=== PATIENT | female | born 1930 | race Caucasian/White ===

== ENCOUNTER 2016-06-11 17:06 | Inpatient (IN) | payer OTHER ==
--- NOTE | 2016-06-11 17:29 | EDPHY ---
H & P Stated Complaint: weakness/dizzy/bradycardia/here for pacemaker Time Seen by Provider: 06/11/16 17:28 HPI/ROS: CHIEF COMPLAINT: Bradycardia, shortness of breath, weakness. HISTORY OF PRESENT ILLNESS: The patient is an 85-year-old female presenting from her primary care provider with one week of shortness of breath, weakness, and bradycardia. She had an appointment with her primary care provider today at 1400 who noticed her heart rate was 38. She had an EKG taken and she was referred here on the advice of Dr. Whatley, cardiology, for Pacemaker placement. She has not fainted or had peripheral edema over the past week. She is currently fatigued and short of breath with a headache. Her shortness of breath is worsened with she lies flat. She has had a recent cold with rhinorrhea. No fever, chills, chest pain, palpitations, vomiting, diarrhea, urinary complaints , headache, lightheadedness. She has recently had more frequent ocular migraines with shimmering vision in her right visual field. REVIEW OF SYSTEMS: Aside from elements discussed in the HPI, a comprehensive 10-point review of systems was reviewed and is negative. PAST MEDICAL HISTORY: Spinal stenosis, arthritis, scoliosis, shingles, Raynaud 's Syndrome. SOCIAL HISTORY: Here with daughter. VITAL SIGNS: Reviewed by me GENERAL: Well-developed, well-nourished, resting comfortably in no respiratory distress. HEENT: Atraumatic. Eyes: No icterus, no injection. Mouth: moist mucous membranes. No erythema or lesions. Neck: supple with no adenopathy. LUNGS: Clear to auscultation bilaterally, no wheezes, rhonchi or rales. CARDIAC: Bradycardic with irregular rhythm. Systolic murmur. No gallops. ABDOMEN: Soft, nontender, nondistended, bowel sounds normal. BACK: No CVA tenderness. EXTREMITIES: No trauma. No edema. Range of motion is normal throughout. NEURO: Alert and oriented, grossly nonfocal. SKIN: Warm and dry, no rash. PSYCHIATRIC: Normal mentation, no agitation. Portions of this note were transcribed by a medical liaison. I personally performed a history, physical exam, medical decision making, and confirmed accuracy of information the transcribed note. Source: Patient Exam Limitations: No limitations - Personal History Current Tetanus/Diphtheria Vaccine: Yes - Medical/Surgical History Hx Asthma: No Hx Chronic Respiratory Disease: No Hx Diabetes: No Hx Cardiac Disease: No Hx Renal Disease: No Hx Cirrhosis: No Hx Alcoholism: No Hx HIV/AIDS: No Hx Splenectomy or Spleen Trauma: No Other PMH: denies - Social History Smoking Status: Never smoked Constitutional: Initial Vital Signs Temperature (C) 36.4 C 06/11/16 17:15 Heart Rate 62 06/11/16 17:15 Respiratory Rate 16 06/11/16 17:15 Blood Pressure 148/70 H 06/11/16 17:15 O2 Sat (%) 93 06/11/16 17:15 O2 Delivery Mode Room Air O2 (L/minute) 2 Allergies/Adverse Reactions: codeine Allergy (Verified 06/11/16 17:11) meperidine HCl [From Demerol] Allergy (Verified 06/11/16 17:11) Penicillins Allergy (Verified 06/11/16 17:10) Home Medications: Medication Instructions Recorded Cetirizine [ZyrTEC 10 mg (*)] 10 mg PO DAILY 06/11/16 Dextran 70/Hypromellose 1 each OP DAILY PRN 06/11/16 [Artificial Tears] Gabapentin [Neurontin 300 MG (*)] 300 mg PO HS 06/11/16 Herbals/Supplements -Info Only 1 ea NS DAILY 06/11/16 Omeprazole 40 mg PO DAILY 06/11/16 Ranitidine HCl 300 mg PO HS 06/11/16 Simvastatin 20 mg PO HS 06/11/16 Tramadol HCl/Acetaminophen 1 each PO TID@0830,14,21 06/11/16 [Tramadol-Acetaminophn 37.5-325] cycloSPORINE 0.05% [Restasis Opht 1 drop EACHEYE BID 06/11/16 Drops(*)] Lisinopril [Zestril 10 mg (*)] 10 mg PO ONCE #30 tab 06/13/16 Montelukast Sodium [Singulair 10 10 mg PO DAILY@1800 #0 tab 06/13/16 mg (*)] Medical Decision Making - Diagnostics EKG Interpretation: 12-LEAD EKG: Please see the full report in [facility]. My interpretation: sinus bradycardia. Further rhythm strip demonstrates complete heart block. Imaging: X-ray of the chest was obtained. I viewed the images myself on the PACS system. My interpretation of the images is: markedly elevated left hemidiaphragm. The radiologist interpretation is pending at this time. I discussed the x-ray findings with the patient. ED Course/Re-evaluation: An IV was established and labs ordered. Chest x-ray and EKG ordered. Dr. Whatley, cardiology, will see the patient later tonight and requests she be admitted to the hospitalist service. Although her EKG showed sinus bradycardia, on the monitor patient has complete heart block. Troponin negative, electrolytes normal. Will admit on pacer pads, bp stable, will need pacemaker. Patient and family aware. Differential Diagnosis: Diff dx of patients complaints of sob and fatigue include cardiac causes, anemia , infection, electrolyte abnormalties, arrythmias, heart failure. Consult/Admit Bed Type: Dr Cruz, Stepdown - Data Points Laboratory Results: Laboratory Results 06/11/16 17:40 06/11/16 17:40 Medications Given: Discontinued Medications Atorvastatin Calcium (Lipitor) 10 mg PO HS [facility] Stop: 12/08/16 22:29 Last Admin: 06/12/16 20:49 Dose: Not Given Bacitracin (Bacitracin 1000 Ml Irrigation) 50,000 units IRR ONCALL ONE Stop: 06/12/16 06:01 Last Admin: 06/12/16 10:50 Dose: Not Given Cetirizine HCl (Zyrtec) 10 mg PO DAILY [facility] Stop: 12/09/16 08:59 Last Admin: 06/12/16 20:50 Dose: Not Given Cetirizine HCl (Zyrtec) 10 mg PO HS [facility] Stop: 12/09/16 08:59 Last Admin: 06/12/16 21:05 Dose: 10 mg Cyclosporine (Restasis) 1 drop EACHEYE BID MARY Stop: 12/08/16 20:59 Last Admin: 06/12/16 20:50 Dose: Not Given Cyclosporine (Restasis) 1 drop EACHEYE BID MARY Stop: 12/09/16 08:59 Last Admin: 06/13/16 09:45 Dose: 1 drop Diazepam (Valium) 5 mg PO ONCALL ONE Stop: 06/12/16 06:01 Last Admin: 06/12/16 10:50 Dose: Not Given Diphenhydramine HCl (Benadryl) 25 mg PO ONCALL ONE Stop: 06/12/16 06:01 Last Admin: 06/12/16 10:50 Dose: Not Given Famotidine (Pepcid) 20 mg PO HS [facility] Stop: 12/08/16 22:29 Last Admin: 06/12/16 20:50 Dose: Not Given Gabapentin (Neurontin) 300 mg PO HS [facility] Stop: 12/08/16 20:59 Last Admin: 06/12/16 20:51 Dose: Not Given Gabapentin (Neurontin) 300 mg PO HS [facility] Stop: 12/08/16 23:29 Last Admin: 06/12/16 21:03 Dose: 300 mg Hydralazine HCl (Apresoline) 5 mg IVP ONCE ONE Stop: 06/11/16 23:31 Last Admin: 06/11/16 23:17 Dose: 5 mg Sodium Chloride (Ns) 1,000 mls @ 0 mls/hr IV ONCALL ONE PRN Reason: As Directed Stop: 06/12/16 06:01 Last Admin: 06/12/16 10:50 Dose: Not Given Vancomycin HCl 750 mg/ (Dextrose) 150 mls @ 150 mls/hr IV ONCE ONE Stop: 06/12/16 07:29 Last Admin: 06/12/16 10:50 Dose: Not Given Vancomycin HCl 750 mg/ (Dextrose) 165 mls @ 165 mls/hr IV Q24H MARY PRN Reason: Protocol Stop: 06/13/16 07:59 Last Admin: 06/13/16 06:43 Dose: 165 mls Lisinopril (Zestril) 10 mg PO ONCE ONE Stop: 06/13/16 11:31 Last Admin: 06/13/16 11:15 Dose: 10 mg Miscellaneous Medication (Tramadol Hcl/Acetaminophen [Tramadol-Acetaminophn 37.5 -325]) 1 each PO TID@0830,14,21 [facility] Stop: 12/08/16 20:59 Last Admin: 06/12/16 20:51 Dose: Not Given Miscellaneous Medication (Non-Formulary) 0 ea PO HS [facility] Stop: 12/08/16 23:29 Last Admin: 06/12/16 21:04 Dose: 20 mg Miscellaneous Medication (Non-Formulary) 0 ea PO AD@0800,2000 [facility] Stop: 12/08/16 23:29 Last Admin: 06/12/16 20:51 Dose: Not Given Miscellaneous Medication (Non-Formulary) 0 ea PO DAILY [facility] Stop: 12/09/16 08:59 Last Admin: 06/13/16 09:43 Dose: 40 mg Miscellaneous Medication (Tramadol Hcl/Acetaminophen [Tramadol-Acetaminophn 37.5 -325]) 1 each PO TID@0830,14,21 [facility] Stop: 12/09/16 08:29 Last Admin: 06/12/16 20:51 Dose: Not Given Miscellaneous Medication (Tramadol Hcl/Acetaminophen [Tramadol-Acetaminophn 37.5 -325]) 1.5 tab PO DAILY@12 [facility] Stop: 12/09/16 14:29 Last Admin: 06/12/16 13:45 Dose: 1.5 tab Miscellaneous Medication (Tramadol Hcl/Acetaminophen [Tramadol-Acetaminophn 37.5 -325]) 2 each PO HS [facility] Stop: 12/09/16 20:59 Last Admin: 06/12/16 21:19 Dose: 2 tab Miscellaneous Medication (Tramadol Hcl/Acetaminophen [Tramadol-Acetaminophn 37.5 -325]) 1.5 tab PO DAILY@,14 [facility] Stop: 12/09/16 14:29 Last Admin: 06/13/16 11:15 Dose: 1.5 tab Miscellaneous Medication (Non-Formulary) 0 ea PO HS [facility] Stop: 12/08/16 23:29 Last Admin: 06/12/16 21:01 Dose: 300 mg Montelukast Sodium (Singulair) 10 mg PO DAILY@1800 [facility] Stop: 12/09/16 17:59 Last Admin: 06/12/16 21:49 Dose: Not Given Departure - Departure Disposition: [facility] Acute Clinical Impression: Bradycardia, Shortness of breath, Complete atrioventricular block Condition: Fair Report Scribed for: Екатерина Smith Report Scribed by: Corey Austin Date of Report: 06/11/16 Time of Report: 17:38
--- NOTE | 2016-06-11 17:44 | CPEKG ---
Heart Rate: 38 RR Interval: 1579 P-R Interval: 352 QRSD Interval: 130 QT Interval: 528 QTC Interval: 420 P [place]: 0 QRS [place]: -65 T Wave [place]: 49 EKG Severity - ABNORMAL ECG - EKG Impression: SINUS BRADYCARDIA EKG Impression: FIRST DEGREE AV BLOCK EKG Impression: NONSPECIFIC IVCD WITH LAD Electronically Signed By: Solis Land 12-Jun-2016 17:43:35
[2016-06-11 18:02] LABS: % IMMATURE GRANULYOCYTES 0.3 % (0.0-1.1); ABSOLUTE IMMATURE GRANULOCYTES 0.02 10^3/uL (0.00-0.10); ADD DIFF? NO; ADD MORPH? NO; ADD SCAN? NO; ATYPICAL LYMPHOCYTE FLAG 10 (0-99); FRAGMENT RBC FLAG 0 (0-99); HEMATOCRIT 40.6 % (38.0-47.0); HEMOGLOBIN 13.9 g/dL (12.6-16.3); LEFT SHIFT FLG 0 (0-99); LIPEMIA HEMOLYSIS FLAG 90 (0-99); MEAN CELL HEMOGLOBIN 32.1 pg (27.9-34.1); MEAN CELL HEMOGLOBIN CONCENTR. 34.2 g/dL (32.4-36.7); MEAN CELL VOLUME 93.8 fL (81.5-99.8); MEAN PLATELET VOLUME 9.7 fL (8.7-11.7); PLATELET CLUMPS FLAG 0 (0-99); PLATELET COUNT 190 10^3/uL (150-400); RED BLOOD CELL COUNT 4.33 10^6/uL (4.18-5.33); RED CELL DISTRIBUTION WIDTH 12.9 % (11.5-15.2)
[2016-06-11 18:07] LABS: ALANINE AMINOTRANSFERASE 48 IU/L (9-52); ALBUMIN 3.8 g/dL (3.5-5.0); ALKALINE PHOSPHATASE 50 IU/L (38-126); ANION GAP 12 mEq/L (8-16); ASPARTATE AMINOTRANSFERASE 47 IU/L (14-46); BILIRUBIN,TOTAL 0.5 mg/dL (0.1-1.4); BILIRUBIN-CONJUGATED 0.1 mg/dL (0.0-0.5); BILIRUBIN-UNCONJUGATED 0.4 mg/dL (0.0-1.1); CALCIUM 9.4 mg/dL (8.5-10.4); CARBON DIOXIDE 27 mEq/l (22-31); CHLORIDE 98 mEq/L (97-110); CREATININE 0.7 mg/dL (0.6-1.0); GLOMERULAR FILTRATION RATE > 60; GLUCOSE 104 mg/dL (70-100); MAGNESIUM 1.9 mg/dL (1.6-2.3); POTASSIUM 4.2 mEq/L (3.5-5.2); SODIUM 137 mEq/L (134-144); TOTAL PROTEIN 6.7 g/dL (6.3-8.2)
[2016-06-11 18:17] LABS: TROPONIN I 0.016 ng/mL (0-0.034)
--- NOTE | 2016-06-11 18:26 | DX ---
PA and Lateral Chest June 11, 2016 Indication: Chest pain Findings: The left hemidiaphragm is markedly asymmetrically elevated results in left basilar compress aj atelectasis. The right lung is clear except for minimal linear atelectasis the base. No pulmonary edema, pneumothorax, or effusion. Demineralization and marked curvature of the thoracic spine. An ol d/subacute right lateral 9th rib fracture has healing callus. No discernible acute fracture. Impression: Marked asymmetric elevation left hemidiaphragm and bibasilar atelectasis.
[2016-06-11] MEDS ORDERED: ONDANSETRON 4 MG/2 ML VIAL IVP PRN (20:17)
[2016-06-11] MEDS ORDERED: ONDANSETRON DISINTEGRATING 4 MG TAB PO PRN (20:17)
[2016-06-11] MEDS ORDERED: ACETAMINOPHEN 325 MG TAB PO PRN (20:17)
--- NOTE | 2016-06-11 20:42 | GHP ---
[f rep st] HISTORY AND PHYSICAL DATE OF ADMISSION: 06/11/2016 CHIEF COMPLAINT: Weakness, fatigue. HISTORY OF PRESENT ILLNESS: This is an 85-year-old female with no previous cardiac history. She has had 1 week of shortness of breath with exertion as well as just generalized fatigue. She has had no chest pain. She was at [facility] and found to have a bradycardia and [facility]. She does have a headache. She also had a recent cough, cold. She has a histor y of headaches and ocular migraines, which she has had more frequently. REVIEW OF SYSTEMS: A 10-point review of systems was obtained and was negative. PAST MEDICAL HISTORY: 1. Spinal stenosis and scoliosis. 2. Raynaud. 3. Previous history of shingles. 4. Migraines. MEDICATIONS: Reviewed. SOCIAL HISTORY: No smoking or alcohol. FAMILY HISTORY: Father had coronary disease. PHYSICAL EXAM: VITAL SIGNS: Afebrile, blood pressure is 153/63, heart rate is in the 30s, oxygen sa turation 95% on room air. GENERAL: Patient is a thin, in no apparent distress. HEENT: Nonicteric sclerae. Extraocular movements intact. Moist mucous membranes. NECK: Supple. No thyromegaly. JUSTYNA NGS: Good effort. Clear to auscultation bilaterally. CARDIOVASCULAR: Bradycardic. No murmurs, ru bs, or gallops. ABDOMEN: Positive bowel sounds. Soft, nontender, nondistended. No hepatosplenomeg darshana. EXTREMITIES: No clubbing, cyanosis, or edema. SKIN: Without rash. Warm, dry, and intact. N EUROLOGIC: Alert and oriented x3. Moving all 4 extremities equally. PSYCH: Normal affect. LABS: CBC is normal. Chemistry is also normal. Negative troponin. EKG personally reviewed and int erpreted, shows a sinus bradycardia and first-degree AV block. PLAN: Bradycardia, probably more consistent with sick sinus syndrome. Cardiology will see the patie nt and place a pacemaker in the morning. /[id number]/MODL
[2016-06-11] MEDS ORDERED: TRAMADOL HCL PO SCH (21:00)
[2016-06-11] MEDS ORDERED: ACETAMINOPHEN PO SCH (21:00)
[2016-06-11] MEDS ORDERED: GABAPENTIN 300 MG CAP PO SCH (21:00)
[2016-06-11] MEDS ORDERED: CYCLOSPORINE 0.05% 1 EACH BOX EACHEYE SCH (21:00)
[2016-06-11] MEDS ORDERED: TEARS/DEXTRAN 70/HYPROMELLOSE 15 ML OPHT.BTL EACHEYE PRN (22:13)
[2016-06-11] MEDS ORDERED: FAMOTIDINE 20 MG TAB PO SCH (22:30)
[2016-06-11] MEDS ORDERED: ATORVASTATIN CALCIUM 10 MG TAB PO SCH (22:30)
[2016-06-11] MEDS ORDERED: hydrALAZINE 20 MG/ML VIAL IVP ONE (23:30)
[2016-06-12] MEDS: ACETAMINOPHEN PO SCH ×2 (00:13→20:51)
[2016-06-12] MEDS: TRAMADOL HCL PO SCH ×2 (00:13→20:51)
[2016-06-12] MEDS: RANITIDINE 300MG PO SCH ×2 (00:17→20:51)
[2016-06-12] MEDS: GABAPENTIN 300 MG CAP PO SCH ×2 (00:17→21:03)
[2016-06-12] MEDS: CYCLOSPORINE 0.05% 1 EACH BOX EACHEYE SCH ×3 (00:20→21:04)
[2016-06-12] MEDS: SIMVASTATIN 40MG TABLET PO SCH ×2 (00:22→21:04)
[2016-06-12 04:59] LABS: % IMMATURE GRANULYOCYTES 0.1 % (0.0-1.1); ABSOLUTE IMMATURE GRANULOCYTES 0.01 10^3/uL (0.00-0.10); ADD DIFF? NO; ADD MORPH? NO; ADD SCAN? NO; ATYPICAL LYMPHOCYTE FLAG 40 (0-99); FRAGMENT RBC FLAG 0 (0-99); HEMATOCRIT 36.4 % (38.0-47.0); HEMOGLOBIN 12.6 g/dL (12.6-16.3); LEFT SHIFT FLG 0 (0-99); LIPEMIA HEMOLYSIS FLAG 90 (0-99); MEAN CELL HEMOGLOBIN 32.8 pg (27.9-34.1); MEAN CELL HEMOGLOBIN CONCENTR. 34.6 g/dL (32.4-36.7); MEAN CELL VOLUME 94.8 fL (81.5-99.8); MEAN PLATELET VOLUME 9.9 fL (8.7-11.7); PLATELET CLUMPS FLAG 0 (0-99); PLATELET COUNT 177 10^3/uL (150-400); RED BLOOD CELL COUNT 3.84 10^6/uL (4.18-5.33); RED CELL DISTRIBUTION WIDTH 12.9 % (11.5-15.2)
[2016-06-12 05:09] LABS: ALANINE AMINOTRANSFERASE 46 IU/L (9-52); ALBUMIN 3.1 g/dL (3.5-5.0); ALKALINE PHOSPHATASE 46 IU/L (38-126); ANION GAP 8 mEq/L (8-16); ASPARTATE AMINOTRANSFERASE 33 IU/L (14-46); BILIRUBIN,TOTAL 0.4 mg/dL (0.1-1.4); CALCIUM 9.3 mg/dL (8.5-10.4); CARBON DIOXIDE 28 mEq/l (22-31); CHLORIDE 104 mEq/L (97-110); CREATININE 0.7 mg/dL (0.6-1.0); GLOMERULAR FILTRATION RATE > 60; GLUCOSE 99 mg/dL (70-100); POTASSIUM 4.4 mEq/L (3.5-5.2); SODIUM 140 mEq/L (134-144); TOTAL PROTEIN 5.6 g/dL (6.3-8.2)
[2016-06-12 05:11] LABS: INR 1.13 (0.83-1.16); PROTIME(PATIENT) 14.4 SEC (12.0-15.0)
[2016-06-12 05:12] LABS: APTT 33.2 SEC (23.0-38.0)
[2016-06-12] MEDS ORDERED: NS 1,000 ML IV ONE (06:00)
[2016-06-12] MEDS ORDERED: diphenhydrAMINE 25 MG CAP PO ONE (06:00)
[2016-06-12] MEDS ORDERED: DIAZEPAM 5 MG TAB PO ONE (06:00)
[2016-06-12] MEDS ORDERED: BACITRACIN IRRIGATION/NS 50,000 UNITS/1,000 ML BTL IRR ONE (06:00)
[2016-06-12] MEDS ORDERED: VANCOMYCIN 750 MG in D5W 150 ML IV ONE (06:30)
[2016-06-12] MEDS ORDERED: VANCOMYCIN HCL/NORMAL SALINE 250 ML IV ONE (07:00)
[2016-06-12] MEDS ORDERED: LIDOCAINE 1% 30 ML SDV ONE (07:03)
[2016-06-12] MEDS ORDERED: fentaNYL 100 MCG/2 ML INJ ONE (07:04)
[2016-06-12] MEDS ORDERED: BUPIVACAINE 0.5% 30 ML SDV ONE (07:04)
[2016-06-12] MEDS ORDERED: MIDAZOLAM 2 MG/2 ML VIAL ONE (07:04)
[2016-06-12] MEDS ORDERED: IOPAMIDOL (ISOVUE-300) 200 ML BTL IV ONE (08:05)
[2016-06-12] MEDS ORDERED: CETIRIZINE 10 MG TAB PO SCH ×3 (09:00→21:00)
[2016-06-12] MEDS ORDERED: PANTOPRAZOLE SODIUM 40 MG TAB PO SCH (09:00)
--- NOTE | 2016-06-12 09:15 | CPEKG ---
Heart Rate: 67 RR Interval: 896 P-R Interval: 204 QRSD Interval: 140 QT Interval: 488 QTC Interval: 516 P [place]: -57 QRS [place]: -74 T Wave [place]: 91 EKG Severity - ABNORMAL ECG - EKG Impression: ATRIAL-VENTRICULAR DUAL-PACED RHYTHM Electronically Signed By: Solis Land 12-Jun-2016 17:43:28
[2016-06-12] MEDS: OMEPRAZOLE 40MG CAPS PO SCH (12:42)
--- NOTE | 2016-06-12 13:46 | EPPROC ---
Electrophysiology Procedure Note: PROCEDURE PERFORMED: * Implantation of an A/V Pacemaker * Subclavian vein angiography * Fluoroscopy INDICATION: This is a 85 yr old who presented to ER with dizziness and SOA and was in complete heart block. hence it was decided to implant dual chamber pacemaker. PROCEDURE NOTE: Patient presented to the cardiac catherization laboratory in a fasting, post absorptive state. Cardiac biology laboratory assistant nurse administered moderate sedation. The left infraclavicular area was prepped and draped in the usual sterile fashion. Lidocaine plus bupivacaine was used for local anesthesia. Left subclavian venography was performed by injection of iodinated contrast into the left antecubital vein. This was done to assure patency of the vein and also to assess for any anatomical aberrations. Using a combination of blunt and sharp dissection and electrocautery, the dissection was carried down to the prepectoral fascia. All bleeding was controlled with electrocautery. Fluoroscopy was utilized during the entire procedure for venous access and placement of the leads. Using the usual technique, left celphalic vein was accessed and a glidewire was placed. Through this initially a 9F and later a 7F sheath was passed. Placement of the guidewires into the venous system was confirmed by low- pressure blood return and also by visualizing the guidewires advancing into the inferior vena cava. A purse string suture was applied around the guidewires. An active fixation ventricular lead was advanced into the right ventricular apex and screwed in place. An active fixation atrial lead was advanced into the right atrial appendage and screwed in place. The peel away sheaths were removed. Pacing thresholds, sensing parameters and lead impedances were measured. There was no diaphragmatic stimulation at maximum output. The leads were sutured to the prepectoral fascia with 3 nonabsorbable sutures each. The pocket was created and it was flushed using antibiotic solution. It was inspected for any bleeding. The leads were attached to the pacemaker securely. The pacemaker was inserted into the pocket and secured in place with a nonabsorbable suture. Fluoroscopy was performed in ALMAZAN and POLISH planes to verify right-sided placement of the leads. Also fluoroscopy of the pacemaker pocket was performed. The pacemaker pocket was closed in 3 layers with absorbable vicryl sutures. Steristrips were placed. Appropriate dressing was applied. The patient left the cardiac catheterization laboratory in stable condition. Serial Numbers: * Device: ROLIronik ELuna 8 DR Wood SN [id number] * Atrial Lead: Biotronik SOlia S 45 SN [id number] * Ventricular Lead: Biotronik Solia S53 SN [id number] Stimulation Thresholds & Impedance Measurements: * Atrial Lead 3.3mV, 0.8@0.4ms, 468Ohms * Ventricular Lead 5.1mV, 0.8@0.5ms, 669Ohms Wilbert Pacing Parameters * Pacing mode: DDD CLS * Lower rate: 60 * Upper tracking rate: 120 * Upper sensor rate: 120 Patient Problems: Problems Problem Status Diagnosed Bradycardia Acute
[2016-06-12] MEDS ORDERED: ACETAMINOPHEN PO SCH ×2 (14:30→21:00)
[2016-06-12] MEDS ORDERED: TRAMADOL PO SCH ×2 (14:30→21:00)
--- NOTE | 2016-06-12 15:19 | HOSPPROG ---
Hospitalist Progress Note Assessment/Plan: 85 y/o female presenting with weakness and fatigue # Sick Sinus Syndrome POD 0 PPM placement plan for dc 06/13 if doing well and cleared by cards Subjective: feeling well post procedure. no sob. no acute complaints Objective: Vital Signs Temp Pulse Resp BP Pulse Ox 36.3 C 63 12 188/99 H 100 06/12/16 10:39 06/12/16 10:39 06/12/16 10:39 06/12/16 10:39 06/12/16 10:39 Laboratory Results 06/12/16 03:39 06/12/16 03:39 06/11/16 06/12/16 06/13/16 05:59 05:59 05:59 Intake Total 650 Output Total 1100 Balance -450 PT 14.4 SEC (12.0-15.0) 06/12/16 03:39 INR 1.13 (0.83-1.16) 06/12/16 03:39 - Physical Exam Constitutional: no apparent distress, appears nourished, not in pain Ears, Nose, Mouth, Throat: moist mucous membranes, hearing normal, ears appear normal, no oral mucosal ulcers Cardiovascular: regular rate and rhythym, no murmur, rub, or gallop Respiratory: no respiratory distress, no rales or rhonchi, clear to auscultation Gastrointestinal: normoactive bowel sounds, soft, non-tender abdomen, no palpable masses ICD10 Worksheet Patient Problems: Problems Problem Status Diagnosed Bradycardia Acute
[2016-06-12] MEDS ORDERED: MONTELUKAST SODIUM 10 MG TAB PO SCH (18:00)
[2016-06-12] MEDS ORDERED: RANITIDINE 300MG PO SCH (21:00)
[2016-06-13 04:52] LABS: % IMMATURE GRANULYOCYTES 0.3 % (0.0-1.1); ABSOLUTE IMMATURE GRANULOCYTES 0.02 10^3/uL (0.00-0.10); ADD DIFF? NO; ADD MORPH? NO; ADD SCAN? NO; ATYPICAL LYMPHOCYTE FLAG 30 (0-99); FRAGMENT RBC FLAG 0 (0-99); HEMATOCRIT 34.1 % (38.0-47.0); HEMOGLOBIN 11.8 g/dL (12.6-16.3); LEFT SHIFT FLG 0 (0-99); LIPEMIA HEMOLYSIS FLAG 90 (0-99); MEAN CELL HEMOGLOBIN 32.1 pg (27.9-34.1); MEAN CELL HEMOGLOBIN CONCENTR. 34.6 g/dL (32.4-36.7); MEAN CELL VOLUME 92.7 fL (81.5-99.8); MEAN PLATELET VOLUME 9.7 fL (8.7-11.7); PLATELET CLUMPS FLAG 0 (0-99); PLATELET COUNT 153 10^3/uL (150-400); RED BLOOD CELL COUNT 3.68 10^6/uL (4.18-5.33); RED CELL DISTRIBUTION WIDTH 12.8 % (11.5-15.2)
[2016-06-13 04:54] LABS: ANION GAP 9 mEq/L (8-16); CALCIUM 8.8 mg/dL (8.5-10.4); CARBON DIOXIDE 26 mEq/l (22-31); CHLORIDE 102 mEq/L (97-110); CREATININE 0.7 mg/dL (0.6-1.0); GLOMERULAR FILTRATION RATE > 60; GLUCOSE 108 mg/dL (70-100); POTASSIUM 4.2 mEq/L (3.5-5.2); SODIUM 137 mEq/L (134-144)
[2016-06-13] MEDS ORDERED: VANCOMYCIN 750 MG in D5W 150 ML IV SCH (07:00)
[2016-06-13 08:42] VITALS: BP 161/93; PULSE 101; RESP 18; TEMP 98.5; O2SAT 95
[2016-06-13] MEDS ORDERED: TRAMADOL PO SCH (09:00)
[2016-06-13] MEDS ORDERED: ACETAMINOPHEN PO SCH (09:00)
[2016-06-13] MEDS: OMEPRAZOLE 40MG CAPS PO SCH (09:43)
[2016-06-13] MEDS: CYCLOSPORINE 0.05% 1 EACH BOX EACHEYE SCH (09:45)
--- NOTE | 2016-06-13 10:32 | ECHO ---
[id number] + + [address] : : [place] [address] : : [phone] + Adult Echocardiographic Report + ----+ :Name: DEISI ERAZO FStudy Date: 06/13/2016 07:56 AM : : Hospital Admission Number: [id number] Location: 203: :: 1930 Gender: Female Height: 58 in : :Age: 85 yrs Race: WH Weight: 97 lb : :Reason For Study: Bradycardia/New pacer : : BSA: 1.3 meters2 : + ----+ Doppler Measurements & Calculations MV E max jose raul: MV V2 max: MV P1/2t max jose raul: Ao mean P.6 cm/sec 180.3 cm/sec 147.7 cm/sec 11.2 mmHg MV A max jose raul: MV max PG: MV P1/2t: 101.2 msec Ao V2 mean: 207.1 cm/sec 13.0 mmHg MVA(P1/2t): 2.2 cm2 157.8 cm/sec MV E/A: 0.64 MV V2 mean: MV dec slope: Ao V2 VTI: 37.2 cm MV dec time: 99.5 cm/sec 0.26 sec MV mean P.3 cm/sec2 5.0 mmHg MV V2 VTI: 34.3 cm Left Ventricle The left ventricle is hyperdynamic. Right Ventricle There is a pacemaker lead in the right ventricle. Atria The left atrium is moderately dilated. Mitral Valve Severely calcified mitral leaflets. There is mild mitral regurgitation. Tricuspid Valve Normal tricuspid valve. Pulmonic Valve The pulmonic valve is not well visualized. Great Vessels The aortic root is not well visualized. Pericardium/Pleural trivial pericardial effusion. Conclusion A complete two-dimensional transthoracic echocardiogram was performed (2D, M-mode, Doppler and color flow Doppler). The study was technically difficult. Limited views for visualization. The left ventricle is hyperdynamic. There is a pacemaker lead in the right ventricle. The left atrium is moderately dilated. Severely calcified mitral leaflets. There is mild mitral regurgitation. Other details are difficult to decipher considering limited study post- pacemaker implant Final Reading Physician: Aravind Iniguez signed on 06/13/2016 10:30 AM Ordering Physician: Sonya Cruz Performed By: Xuan Raymond RDCS
--- NOTE | 2016-06-13 10:41 | DX ---
AP Upright and Lateral Chest June 13, 2016 Clinical Indications: Follow up cardiac pacer placement; comparison June 11, 2016. Findings: There has been placement of a bipolar cardiac pacer from a left subclavian approach. No pne umothorax is identified. Again noted is prominent elevation of the left hemidiaphragm. Compressive atelectatic changes are see n involving the left lower lung. There is minimal right basilar atelectasis. The upper lungs are rashid r. Secondary to opacification of the lower chest on the left, heart size is difficult to evaluate. Ao rtic tortuosity is seen. Prominent scoliotic curvature of the spine is noted. Impression: 1. Negative for pneumothorax following transvenous cardiac pacemaker placement. 2. See above report for additional findings.
--- NOTE | 2016-06-13 10:43 | SOAPPROG ---
SOAP Progress Note Assessment/Plan: Assessment/Plan: This is a 85 yr old with past history of HTN came in with [facility]. Pacemaker was implanted. Pacemaker: Numbers are optimal. CXR shows good lead position. Instructions given. Pt will be seen in our clinic for wound care and device check in one week. Arrangements are being made HTN; Add Lisinopril. Explained to the pt who is agreeable to the plan. Home Health: product development worker on board to eval for the same. 06/13/16 10:41 Subjective: Pt is doing well. Feeling better. Objective: Vital Signs Temp Pulse Resp BP Pulse Ox 36.9 C 101 H 18 161/93 H 95 06/13/16 08:00 06/13/16 08:00 06/13/16 08:00 06/13/16 08:00 06/13/16 08:00 Laboratory Results 06/13/16 03:27 06/13/16 03:27 06/12/16 06/13/16 06/14/16 05:59 05:59 05:59 Intake Total 650 950 Output Total 1100 1000 Balance -450 -50 PT 14.4 SEC (12.0-15.0) 06/12/16 03:39 INR 1.13 (0.83-1.16) 06/12/16 03:39 Physical Exam - Physical Exam General Appearance: alert, no apparent distress EENT: PERRL/EOMI, pharynx normal Neck: supple, normal inspection Respiratory: lungs clear Cardiac/Chest: regular rate, rhythm, No edema, No gallop Abdomen: normal bowel sounds, non-tender, soft, No organomegaly Skin: normal color, warm/dry ICD10 Worksheet Patient Problems: Problems Problem Status Diagnosed Bradycardia Acute
--- NOTE | 2016-06-13 10:58 | PDIAF ---
- Diagnosis Diagnosis: sick sinus syndrome Code Status: Full Code - Medication Management Discharge Medications: Medications to Continue on Transfer Cetirizine [ZyrTEC 10 mg (*)] 10 mg PO DAILY 06/11/16 [Last Taken 06/10/16] Dextran 70/Hypromellose [Artificial Tears] 1 each OP DAILY PRN 06/11/16 [Last Taken Unknown] Gabapentin [Neurontin 300 MG (*)] 300 mg PO HS 06/11/16 [Last Taken 06/10/16] Herbals/Supplements -Info Only 1 ea NS DAILY 06/11/16 [Last Taken 06/11/16] Omeprazole 40 mg PO DAILY 06/11/16 [Last Taken 06/11/16] Ranitidine HCl 300 mg PO HS 06/11/16 [Last Taken 06/10/16] Simvastatin 20 mg PO HS 06/11/16 [Last Taken 06/10/16] Tramadol HCl/Acetaminophen [Tramadol-Acetaminophn 37.5-325] 1 each PO TID@0830, 14,21 06/11/16 [Last Taken Unknown] cycloSPORINE 0.05% [Restasis Opht Drops(*)] 1 drop EACHEYE BID 06/11/16 [Last Taken 06/11/16] Montelukast Sodium [Singulair 10 mg (*)] 10 mg PO DAILY@1800 #0 tab 06/13/16 [ Last Taken Unknown] Discharge Medications: Refer to the Discharge Home Medication list for PRN reason. - Orders Services needed: Home Care, Registered Nurse, Occupational Therapy Home Care Face to Face: I certify that this patient was under my care and that I had the required [id number] encounter meeting the encounter requirements on the discharge day. My findings support the fact that the patient is homebound as defined in CMS Chapter 7 Medicare Benefits Manual 30.1.1, The condition of the patient is such that there exists a normal inability to leave home and consequently, leaving home would require a considerable and taxing effort. Diet Recommendation: no restrictions on diet Diet Texture: Regular Texture Diet - Follow Up Care Current Providers and Referrals: [place],. [Primary Care Provider] - As per Instructions
[2016-06-13] MEDS ORDERED: LISINOPRIL 10 MG TAB PO ONE (11:30)
--- NOTE | 2016-06-13 14:37 | GDS ---
[f rep st] DISCHARGE SUMMARY DISCHARGE DIAGNOSES: 1. Sick sinus syndrome, status post dual-chamber pacemaker placement. 2. Hypertension. CONSULTANTS: Dr. Alex Whatley, [facility]. HOSPITAL COURSE AND STAY BY PROBLEM: Sick sinus syndrome: The patient was admitted to the hospital, where she underwent a dual-chamber pacemaker placement on 06/12/2016. Postprocedure, the patient bergman s not had any complications and on day of discharge feels well and would like to go home and has been cleared by Cardiology. PHYSICAL EXAMINATION: VITAL SIGNS: On day of discharge, blood pressure 161/93, pulse of 101, respir atory rate 18, O2 sat 95% on room air. PROCEDURES DONE THIS HOSPITAL STAY: Dual-chamber pacemaker placement, done 06/12/2016. DISCHARGE MEDICATIONS: Please refer to discharge medication reconciliation in [facility] for full deta ils. Below is a preliminary list. New medications on hospital discharge: Lisinopril 10 mg p.o. daily. DISCHARGE INSTRUCTIONS: The patient will be discharged from the hospital, where she should follow up with her primary care provider for routine blood pressure monitoring. She is also to follow up at [facility] as directed. /[id number]/MODL
--- NOTE | 2016-06-14 09:48 | CPEKG ---
Heart Rate: 84 RR Interval: 714 P-R Interval: 220 QRSD Interval: 128 QT Interval: 432 QTC Interval: 511 P Covel: 45 QRS Covel: -72 T Wave Covel: 96 EKG Severity - ABNORMAL ECG - EKG Impression: ATRIAL-SENSED VENTRICULAR-PACED COMPLEXES EKG Impression: prolonged Qtc interval Electronically Signed By: Solis Land 15-Jun-2016 07:41:24
== END 2016-06-13 12:59 | disposition home health service (06) | DRG 244 ==
LOC: OBSVTOIN 20:20 → F2W 22:09
PROVIDERS: ADMIT Internal Medicine; ATTEND Internal Medicine
PROC: 0JH606Z Insertion of Pacemaker, Dual Chamber into Chest Subcutaneous Tissue and Fascia, Open Approach (ICD-10-PCS; principal; 2016-06-12)
PROC: 02HK3JZ Insertion of Pacemaker Lead into Right Ventricle, Percutaneous Approach (ICD-10-PCS; principal; 2016-06-12)
PROC: 02H63JZ Insertion of Pacemaker Lead into Right Atrium, Percutaneous Approach (ICD-10-PCS; principal; 2016-06-12)
DX: I49.5 Sick sinus syndrome (principal); I10 Essential (primary) hypertension; Z88.0 Allergy status to penicillin
CPT/HCPCS: 82947-QW; 97166-GO; C1785; C1898; G8987-GO-CJ; G8988-GO-CI; J0360; J2250; J3010; J3370; Q9967

== ENCOUNTER 2016-06-14 15:31 | Emergency (ER) | payer OTHER ==
--- NOTE | 2016-06-14 17:11 | EDPHY ---
H & P Stated Complaint: L arm swelling PPM placed wednesday HPI/ROS: CHIEF COMPLAINT: Left arm bruising following surgery HISTORY OF PRESENT ILLNESS: This is an 85 y/o female who had a pacemaker placed 3 days ago on 06/11/16 for sick-sinus syndrome and presents to the ED today complaining of left arm bruising. She was discharged home yesterday and noticed mild swelling in her left hand and left biceps this morning. The bruising is not associated with significant swelling or pain. She denies left upper extremity numbness or weakness. She also complains of a small pruritic and erythematous area on her left anterior chest where one of her bandages was placed. She notes she bruises easily, but is not anticoagulated. She has not been ill in general and denies fever. She has not had lightheadedness, shortness of breath, or chest pain other than incisional. She also has a history of Raynaud's and hypertension. REVIEW OF SYSTEMS: A ten point review of systems was performed and is negative with the exception of the items mentioned in the HPI. Source: Patient, Family Exam Limitations: No limitations - Personal History Current Tetanus/Diphtheria Vaccine: Yes Current Tetanus Diphtheria and Acellular Pertussis (TDAP): Yes - Medical/Surgical History PMH: PMH includes: 1. Spinal stenosis and scoliosis 2. Raynaud 3. Shingles 4. Migraines 5. Sick sinus syndrome status post dual-chamber pacemaker placement 6. Hypertension Prior medical records reviewed including admission 06/11/16 for fatigue, sick- sinus, and pacemaker placement. Hx Asthma: No Hx Chronic Respiratory Disease: No Hx Diabetes: No Hx Cardiac Disease: No Hx Renal Disease: No Hx Cirrhosis: No Hx Alcoholism: No Hx HIV/AIDS: No Hx Splenectomy or Spleen Trauma: No Other PMH: OA, stenosis, scoliosis, HTN, Raynaud's - Social History Smoking Status: Never smoked Additional Social History: Daughter at bedside. Nonsmoker. She is and retired. - Physical Exam Exam: General Appearance: Alert. Vital signs reviewed. BP 139/100 Eyes: Pupils equal and round, no conjunctival injection, no discharge. Anicteric. Neck: No lymphadenopathy, supple. Respiratory: Lungs are clear to auscultation; no wheezes, rales, or rhonchi. Cardiovascular: Regular rate and rhythm; no murmur, rub, or gallop. Gastrointestinal: Abdomen is soft and nontender, no masses or organomegaly, bowel sounds normal. Skin: Bruising to left upper biceps and triceps, small abrasion to left anterior chest presumably where bandage was placed, mildly diffusely swollen left hand. Hands are slightly cool and dusky (at baseline per patient). Back: Nontender to palpation over the thoracolumbar spine. Extremities: No lower extremity edema, no calf tenderness or swelling. No upper extremity swelling other than very mild swelling of her left hand. Normal ROM and strength of left hand and fingers. No hand tenderness. Pulses: Normal 2+ radial pulses bilaterally. Normal capillary refill in both hands. Neurological: Alert and oriented. Moving all four extremities easily and equally. Psychiatric: Normal affect. Constitutional: Initial Vital Signs Temperature (C) 36.3 C 06/14/16 15:39 Heart Rate 80 06/14/16 15:39 Respiratory Rate 16 06/14/16 15:39 Blood Pressure 139/100 H 06/14/16 15:39 O2 Sat (%) 92 06/14/16 15:39 O2 Delivery Mode Room Air Allergies/Adverse Reactions: codeine Allergy (Verified 06/11/16 17:11) meperidine HCl [From Demerol] Allergy (Verified 06/11/16 17:11) Penicillins Allergy (Verified 06/11/16 17:10) Home Medications: Medication Instructions Recorded Cetirizine [ZyrTEC 10 mg (*)] 10 mg PO DAILY 06/11/16 Dextran 70/Hypromellose 1 each OP DAILY PRN 06/11/16 [Artificial Tears] Gabapentin [Neurontin 300 MG (*)] 300 mg PO HS 06/11/16 Herbals/Supplements -Info Only 1 ea NS DAILY 06/11/16 Omeprazole 40 mg PO DAILY 06/11/16 Ranitidine HCl 300 mg PO HS 06/11/16 Simvastatin 20 mg PO HS 06/11/16 Tramadol HCl/Acetaminophen 1 each PO TID@0830,14,21 06/11/16 [Tramadol-Acetaminophn 37.5-325] cycloSPORINE 0.05% [Restasis Opht 1 drop EACHEYE BID 06/11/16 Drops(*)] Lisinopril [Zestril 10 mg (*)] 10 mg PO ONCE #30 tab 06/13/16 Montelukast Sodium [Singulair 10 10 mg PO DAILY@1800 #0 tab 06/13/16 mg (*)] Medical Decision Making - Diagnostics Imaging: Study: Ultrasound of the: Left upper extremity Indication: Recent surgery Results: US scan of the left arm was obtained. The results of the study are negative for DVT. The study was read by the radiologist, Dr. Miner. ED Course/Re-evaluation: Patient's daughter is requesting ultrasound due to concern about blood clot. Left upper extremity ultrasound is negative for venous thromboembolism. There is left upper extremity hematoma noted. These results were relayed to the patient and her daughter. On reexamination both hands have pink to up. She states that these changes, from cool and dusky to warm and pink, are normal for her and attributable to her Raynaud's phenomenon. I agree with this assessment. She is advised to elevate her left hand across her chest. She and her daughter comfortable with these instructions. I am not concerned about venous thromboembolism following the ultrasound study. There is no evidence of infection at the surgical site. Left upper extremity is neurovascularly intact and I do not suspect a vascular injury or nerve injury as a result of her pacemaker placement. She knows that she was hypertensive in the emergency department. She is taking anti hypertensives. Departure - Departure Disposition: Home, Routine, Self-Care Clinical Impression: Superficial bruising of arm Qualifiers: Encounter type: initial encounter Laterality: left Qualifier Code: (S40.022A) Contusion of left upper arm, initial encounter Condition: Good Instructions: Contusion in Adults (ED) Additional Instructions: Elevate hand near level of your heart when able. Follow up with Dr. Whatley as planned. Return to the ED for chest pain, shortness of breath, fever, or other worsening of condition. Referrals: Alex Whatley MD [Primary Care Provider] - As per Instructions Report Scribed for: Bre Nicholson Report Scribed by: Mounika Arzola Date of Report: 06/14/16 Time of Report: 17:12 Physician Review and Approval Statement: 06/14/16 17:10 Portions of this note were transcribed by the medical reviewer. I, Dr. Bre Nicholson, personally performed the history, physical exam, and medical decision- making; and confirmed the accuracy of the information in the transcribed note.
--- NOTE | 2016-06-14 18:50 | US ---
Venous Doppler Study of Left Upper Extremity History: Left upper extremity swelling in a 85-year-old female who is status post recent transvenous pacer placement from a left subclavian approach. Technique: High frequency transducer was used for imaging and Doppler study of the veins of the left upper extremity. Pulsed Doppler and color Doppler were utilized, along with various maneuvers to ass ess flow in the veins. Findings: The basilic vein, cephalic vein, brachial vein and axillary vein are normally compressible and had normal waveforms within them. Normal color Doppler flow is seen within the subclavian vein w hich is noted to have normal respiratory variation. The internal jugular vein is normally compressibl e and has normal Doppler flow within it. No venous thrombosis is identified. There is a complex fluid collection in the upper/mid left upper extremity medially. There is bruising in the region. The collection measures 10 x 3 x 3 cm and presumably represents a postprocedural fabrice rosa. Impression: 1. No evidence of vein thrombosis in the left arm. 2. Left upper extremity hematoma. A preliminary report was called to Dr. Bre Nicholson at 1850 hours in the Emergency Department.
[2016-06-14 19:11] VITALS: BP 162/105; PULSE 68; RESP 18; TEMP 98.2; O2SAT 96
== END 2016-06-14 19:05 | disposition home or self-care (01) ==
DX: M79.81 Nontraumatic hematoma of soft tissue (principal); I10 Essential (primary) hypertension; Z95.0 Presence of cardiac pacemaker